=== PATIENT | male | born 1940 | race Asian ===

== ENCOUNTER 2018-09-21 07:39 | Emergency (ER) | payer OTHER ==
[~2018-09-21] VITALS: Ht 162.6 cm; Wt 73.9 kg
[2018-09-21 07:48] VITALS: BP_SYST 164
[2018-09-21] MEDS ORDERED: DIPH-TET-PERTUS Vaccine 0.5 ML VIAL (ADACEL) I.M. ONE (08:30)
[2018-09-21] MEDS ORDERED: BACITRACIN 1 GM OINT TP ONE (08:30)
[2018-09-21 08:35] VITALS: BP_SYST 149
== END 2018-09-21 08:35 | disposition home or self-care (01) ==
LOC: SED 07:39
DX: S61.401A Unspecified open wound of right hand, initial encounter (principal); I10 Essential (primary) hypertension; E11.9 Type 2 diabetes mellitus without complications; Z88.0 Allergy status to penicillin; X58.XXXA Exposure to other specified factors, initial encounter; Y93.89 Activity, other specified; Y92.89 Other specified places as the place of occurrence of the external cause; Y99.8 Other external cause status
CPT/HCPCS: 90715; 99283

== ENCOUNTER 2019-10-25 10:53 | Emergency (ER) | payer OTHER ==
[~2019-10-25] VITALS: Ht 165.1 cm; Wt 75.7 kg
[2019-10-25 11:06] VITALS: BP_SYST 145
--- NOTE | 2019-10-25 11:10 | NUR ---
Patient to ER bed 7 to gown for evaluation. Side rails up. Report given to SULEMAN DUKES.
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
--- NOTE | 2019-10-25 11:25 | NUR ---
ER Dr. Leiva at bedside examining patient.
[2019-10-25] MEDS ORDERED: DIPH-TET-PERTUS Vaccine 0.5 ML VIAL (ADACEL) I.M. ONE (11:30)
[2019-10-25] MEDS ORDERED: LIDOCAINE 1% 10 MG/ML, 20 ML MDV INJ ONE (11:30)
--- NOTE | 2019-10-25 12:00 | NUR ---
Patient has a 3 cm laceration to R lateral head. Dr. Leiva applied 5 leny using sterile technique. Edges well approximated. Site cleansed with NS. No bleeding noted. Pt tolerated well.
[2019-10-25 12:43] VITALS: BP_SYST 139
--- NOTE | 2019-10-25 12:43 | NUR ---
Patient given written and verbal discharge instructions and verbalizes understanding. ER MD Leiva discussed with patient the results and treatment provided. Patient in stable condition. ID arm band removed. No Rx given. Patient educated on pain management and to follow up with PMD. Pain Scale 0. Opportunity for questions provided and answered. Medication side effect fact sheet provided.
[2019-10-25] MEDS ORDERED: BACITRACIN 1 GM OINT TP ONE (13:58)
== END 2019-10-25 12:43 | disposition home or self-care (01) ==
LOC: SED 10:53
DX: S01.01XA Laceration without foreign body of scalp, initial encounter (principal); I10 Essential (primary) hypertension; E11.9 Type 2 diabetes mellitus without complications; Z88.0 Allergy status to penicillin; W22.8XXA Striking against or struck by other objects, initial encounter; Y93.89 Activity, other specified; Y92.89 Other specified places as the place of occurrence of the external cause; Y99.8 Other external cause status
CPT/HCPCS: 12002; 70450; 90471; 90715; 99284; J2001

== ENCOUNTER 2019-11-04 11:31 | Emergency (ER) | payer OTHER ==
[~2019-11-04] VITALS: Ht 165.1 cm; Wt 113.4 kg
[2019-11-04 11:55] VITALS: BP_SYST 136
--- NOTE | 2019-11-04 12:00 | NUR ---
Patient triaged and placed in waiting room. VSS and patient appears in no acute distress at this time. Accompanied by , awaiting available bed, and MD notified of need for MSE.
--- NOTE | 2019-11-04 15:23 | NUR ---
Patient to [facility] for evaluation. Side rails up.
--- NOTE | 2019-11-04 15:30 | NUR ---
MONTEZ LOAIZA at bedside examining patient.
[2019-11-04] MEDS ORDERED: BACITRACIN 1 GM OINT TP ONE ×2 (15:45→16:01)
[2019-11-04 15:57] VITALS: BP_SYST 130
== END 2019-11-04 15:57 | disposition home or self-care (01) ==
LOC: SED 11:31
DX: S01.01XD Laceration without foreign body of scalp, subsequent encounter (principal); W22.8XXD Striking against or struck by other objects, subsequent encounter
CPT/HCPCS: 99282